=== PATIENT | male | born 1950 | race Caucasian/White ===

== ENCOUNTER 2018-02-10 09:59 | Emergency (ER) | payer MEDICARE ==
--- NOTE | 2018-02-10 10:26 | EDM.PDOC ---
ED HPI GENERAL MEDICAL PROBLEM - General Chief Complaint: Upper Extremity Injury/Pain Stated Complaint: SWOLLEN LEFT ARM Time Seen by Provider: 02/10/18 10:07 Source of Information: Reports: Patient History Limitations: Reports: No Limitations - History of Present Illness INITIAL COMMENTS - FREE TEXT/NARRATIVE: The patient presents with left arm swelling and pain. He has renal failure and he is on dialysis. He had a fistula placed in his left upper arm on 11/29/17. He developed pain, redness and swelling to his entire left arm and saw Dr Holman he admitted him to the hospital because the fistula site was infected and there was a vein with 90% stenosis. A balloon procedure was done to open that up and that helped with the swelling. He has been on IV antibiotics and had his last dose Sunday. Last night he started having the pain and now he has more edema to the fistula site and redness. He does not have a fever, chills, cough, chest pain, shortness of breath, abdominal pain, nausea or vomiting. Onset: Gradual Duration: Day(s): (Last night) Location: Reports: Upper Extremity, Left (upper arm) Quality: Reports: Sharp Severity: Moderate Improves with: Reports: Immobilization Worsens with: Reports: Movement Associated Symptoms: Reports: No Other Symptoms Left Upper Arm Pain Score (Numeric/FACES): 7 - Related Data Allergies Allergy/AdvReac Type Severity Reaction Status Date / Time fenofibrate [From Tricor] Allergy Rash Verified 02/10/18 10:05 Home Meds: Home Meds Allopurinol [Zyloprim] 200 mg PO DAILY 02/10/18 [History] Aspirin 81 mg PO DAILY 02/10/18 [History] Furosemide [Lasix] 20 mg PO DAILY 02/10/18 [History] Hydrocodone/Acetaminophen [Hydrocodon-Acetaminophen 5-325] 1 - 2 each PO Q6HR PRN #20 tablet 02/10/18 [Rx] Insulin Aspart [NovoLOG] 10 units SQ TID 02/10/18 [History] Insulin Aspart [NovoLOG] See Protocol SQ TID 02/10/18 [History] Insulin Degludec [Tresiba Flextouch U-100] 40 units SQ BEDTIME 02/10/18 [History ] Linagliptin [Tradjenta] 5 mg PO DAILY 02/10/18 [History] Metoprolol Tartrate 12.5 mg PO BID 02/10/18 [History] Rosuvastatin [Crestor] 10 mg PO BEDTIME 02/10/18 [History] Spironolactone [Aldactone] 25 mg PO DAILY 02/10/18 [History] Tamsulosin [Flomax] 0.4 mg PO BEDTIME 02/10/18 [History] Review of Systems - Review of Systems Review Of Systems: See Below Constitutional: Reports: No Symptoms Eyes: Reports: No Symptoms Ears: Reports: No Symptoms Nose: Reports: No Symptoms Mouth/Throat: Reports: No Symptoms Respiratory: Reports: No Symptoms Cardiovascular: Reports: No Symptoms GI/Abdominal: Reports: No Symptoms Genitourinary: Reports: No Symptoms Musculoskeletal: Reports: Other (Left arm pain, edema and redness) ED EXAM, GENERAL - Physical Exam Exam: See Below Exam Limited By: No Limitations General Appearance: Alert, No Apparent Distress Ears: Normal External Exam Nose: Normal Inspection Head: Atraumatic, Normocephalic Neck: Normal Inspection Respiratory/Chest: No Respiratory Distress, Lungs Clear, Normal Breath Sounds Cardiovascular: Regular Rate, Rhythm, No Edema, No Murmur GI/Abdominal: Soft, Non-Tender, No Organomegaly, No Mass Extremities: Other (Left arm has a fistula to proximal upper arm. Palpable thrill is detected. Moderate edema to that area. Good sensation and pulses distally.) Neurological: Alert, Oriented, No Motor/Sensory Deficits Course - Vital Signs Last Recorded V/S: Last Vital Signs Temp 98.0 F 02/10/18 10:15 Pulse 70 02/10/18 10:15 Resp 20 02/10/18 10:15 BP 140/64 02/10/18 10:15 Pulse Ox 98 02/10/18 10:15 - Orders/Labs/Meds Orders: Active Orders 24 hr Category Date Time Status Cardiac Monitoring [RC] . DIRECTED Care 02/10/18 10:31 Active Peripheral IV Care [RC] . DIRECTED Care 02/10/18 10:31 Active VL Duplex Upr Ext Veins Ltd Lt [US] Stat Exams 02/10/18 10:32 Taken CULTURE BLOOD [BC] Stat Lab 02/10/18 14:00 Received CULTURE BLOOD [BC] Stat Lab 02/10/18 14:05 Received Sodium Chloride 0.9% [Saline Flush] Med 02/10/18 10:31 Active 10 ml FLUSH ASDIRECTED PRN Vancomycin [Vancocin] 1.5 gm Med 02/10/18 14:49 Active Sodium Chloride 0.9% [Normal Saline] 250 ml IV ONETIME Blood Culture x2 Reflex Set [OM.PC] Stat Oth 02/10/18 13:46 Ordered Peripheral IV Insertion Adult [OM.PC] Stat Oth 02/10/18 10:31 Ordered Medication Orders Vancomycin HCl 1.5 gm/ Sodium (Chloride) 250 mls @ 250 mls/hr IV ONETIME ONE Stop: 02/10/18 15:48 Sodium Chloride (Saline Flush) 10 ml FLUSH ASDIRECTED PRN PRN Reason: Keep Vein Open Last Admin: 02/10/18 10:51 Dose: 10 ml Labs: Laboratory Tests 02/10/18 02/10/18 02/10/18 Range/Units 10:30 10:30 14:00 WBC 13.68 H (4.23-9.07) K/mm3 RBC 3.55 L (4.63-6.08) M/mm3 Hgb 11.4 L (13.7-17.5) gm/L Hct 36.1 L (40.1-51.0) % MCV 101.7 H (79.0-92.2) fl MCH 32.1 (25.7-32.2) pg MCHC 31.6 L (32.2-35.5) g/dl RDW Std Deviation 52.6 H (35.1-43.9) fL Plt Count 271 (163-337) K/mm3 MPV 9.9 (9.4-12.3) fl Neut % (Auto) 68.7 H (34.0-67.9) % Lymph % (Auto) 12.0 L (21.8-53.1) % Sequoyah % (Auto) 8.0 (5.3-12.2) % Eos % (Auto) 10.4 H (0.8-7.0) Baso % (Auto) 0.7 (0.1-1.2) % Neut # (Auto) 9.40 H (1.78-5.38) K/mm3 Lymph # (Auto) 1.64 (1.32-3.57) K/mm3 Sequ[place]ah # (Auto) 1.10 H (0.30-0.82) K/mm3 Eos # (Auto) 1.42 H (0.04-0.54) K/mm3 Baso # (Auto) 0.09 H (0.01-0.08) K/mm3 Sodium 140 (136-145) mEq/L Potassium 4.6 (3.5-5.1) mEq/L Chloride 102 (98-107) mEq/L Carbon Dioxide 28 (21-32) mEq/L Anion Gap 14.6 (5-15) BUN 51 H (7-18) mg/dL Creatinine 5.1 H (0.7-1.3) mg/dL Est Cr Clr Drug Dosing 14.94 mL/min Estimated GFR (MDRD) 11 (>60) mL/min BUN/Creatinine Ratio 10.0 L (14-18) Glucose 99 (80-115) mg/dL Calcium 9.6 (8.5-10.1) mg/dL Total Bilirubin 0.3 (0.2-1.0) mg/dL AST 33 (15-37) U/L ALT 40 (16-63) U/L Alkaline Phosphatase 108 (46-116) U/L C-Reactive Protein 0.9 (<1.0) mg/dL Total Protein 7.6 (6.4-8.2) g/dl Albumin 3.6 (3.4-5.0) g/dl Globulin 4.0 gm/dL Albumin/Globulin Ratio 0.9 L (1-2) Vancomycin Trough 10.2 (10.0-20.0) Meds: Medications Generic Name Dose Route Start Last Admin Trade Name Freq PRN Reason Stop Dose Admin Vancomycin HCl 1.5 gm/ Sodium 250 mls @ 250 mls/hr 02/10/18 14:49 Chloride IV 02/10/18 15:48 ONETIME ONE Sodium Chloride 10 ml 02/10/18 10:31 02/10/18 10:51 Saline Flush FLUSH 10 ml ASDIRECTED PRN Administration Keep Vein Open Discontinued Medications Generic Name Dose Route Start Last Admin Trade Name Freq PRN Reason Stop Dose Admin Hydromorphone HCl 0.5 mg 02/10/18 10:32 02/10/18 10:51 Dilaudid IVPUSH 02/10/18 10:33 0.5 mg ONETIME ONE Administration Ceftriaxone Sodium 2 gm/ 100 mls @ 100 mls/hr 02/10/18 13:46 02/10/18 13:57 Sodium Chloride IV 02/10/18 14:45 100 mls/hr ONETIME ONE Administration - Re-Assessments/Exams Free Text/Narrative Re-Assessment/Exam: 02/10/18 11:52 I ordered an IV saline lock, blood cultures, labs and an US of his left arm. 02/10/18 11:53 His WBC was elevated at 13.68. His Hgb was a little low at 11.4. His platelets were normal. His Na and potassium were normal. His BUN was elevated at 51. His creatinine was elevated at 5.1. His GFR is low at 11. His CRP is normal. I am waiting for the US report. 02/10/18 15:09 The US shows no DVT. Patent arterial venous fistula. Soft tissue hematoma, likely related to the dialysis access. The hematoma measures 5.5cm X 3.5cm X 7.4cm. I called [facility] and talked with Dr Meyer the arrow point attacher who is director geothermal operations for Dr Holman. She wanted rocephin given and get a trough on the vancomycin and give a gram or more if needed. His trough is 10.2. I have ordered the rocephin 2 grams IV and vancomycin 1.5grams IV. I will discharge him home with something for pain. Departure - Departure Time of Disposition: 15:15 Disposition: Home, Self-Care 01 Condition: Good Clinical Impression: Cellulitis of left arm, End stage renal failure on dialysis - Discharge Information *PRESCRIPTION DRUG MONITORING PROGRAM REVIEWED*: No *COPY OF PRESCRIPTION DRUG MONITORING REPORT IN PATIENT MARIA E: No Prescriptions: Hydrocodone/Acetaminophen [Hydrocodon-Acetaminophen 5-325] 1 - 2 each PO Q6HR PRN #20 tablet PRN Reason: Pain Referrals: Jonnie Canales MD [Primary Care Provider] - 1 Week Forms: ED Department Discharge Additional Instructions: Continue your medications as prescribed. Go to your dialysis as planed. Take the hydrocodone 1 to 2 pills every 6 hours as needed for pain. Put a warm compress on your arm 2 to 3 times per day. Please return if you are worse. - My Orders Last 24 Hours: My Active Orders 02/10/18 10:31 Cardiac Monitoring [RC] . DIRECTED Peripheral IV Care [RC] . DIRECTED Sodium Chloride 0.9% [Saline Flush] 10 ml FLUSH ASDIRECTED PRN Peripheral IV Insertion Adult [OM.PC] Stat 02/10/18 10:32 VL Duplex Upr Ext Veins Ltd Lt [US] Stat 02/10/18 13:46 Blood Culture x2 Reflex Set [OM.PC] Stat 02/10/18 14:00 CULTURE BLOOD [BC] Stat 02/10/18 14:05 CULTURE BLOOD [BC] Stat 02/10/18 14:49 Vancomycin [Vancocin] 1.5 gm Sodium Chloride 0.9% [Normal Saline] 250 ml IV ONETIME - Assessment/Plan Last 24 Hours: My Active Orders 02/10/18 10:31 Cardiac Monitoring [RC] . DIRECTED Peripheral IV Care [RC] . DIRECTED Sodium Chloride 0.9% [Saline Flush] 10 ml FLUSH ASDIRECTED PRN Peripheral IV Insertion Adult [OM.PC] Stat 02/10/18 10:32 VL Duplex Upr Ext Veins Ltd Lt [US] Stat 02/10/18 13:46 Blood Culture x2 Reflex Set [OM.PC] Stat 02/10/18 14:00 CULTURE BLOOD [BC] Stat 02/10/18 14:05 CULTURE BLOOD [BC] Stat 02/10/18 14:49 Vancomycin [Vancocin] 1.5 gm Sodium Chloride 0.9% [Normal Saline] 250 ml IV ONETIME
[2018-02-10] MEDS ORDERED: Sodium Chloride 0.9% 10 ML Syringe FLUSH PRN (10:31)
[2018-02-10] MEDS ORDERED: HYDROmorphone 0.5 MG/0.5 ML SYRINGE IVPUSH ONE (10:32)
[2018-02-10] MEDS ORDERED: cefTRIAXone 2 GM in Sodium Chloride 0.9% 100 ML IV ONE (13:46)
== END 2018-02-10 17:22 | disposition home or self-care (01) ==
LOC: JD.ED 09:59
DX: L03.114 Cellulitis of left upper limb (principal); N18.6 End stage renal disease; Z99.2 Dependence on renal dialysis; Z79.82 Long term (current) use of aspirin; Z79.4 Long term (current) use of insulin; Z88.8 Allergy status to other drugs, medicaments and biological substances; Z79.899 Other long term (current) drug therapy
CPT/HCPCS: 36415; 80053; 80202; 82962; 85025; 86140; 87040; 93971; 96365; 96366; 96367; 96375; 99284; J0696; J1170; J3370; J7030; J7040; J7050